=== PATIENT | male | born 1990 | race Caucasian/White ===

== ENCOUNTER 2017-08-24 14:31 | Inpatient (IN) | payer BC, MEDICAID ==
[~2017-08-24] VITALS: Ht 182.9 cm; Wt 102.1 kg
[2017-08-24] MEDS ORDERED: SODIUM CHLORIDE FLUSH 10ML SYR IVF ONE (15:00)
[2017-08-24 15:33] LABS: BASOPHILS # (AUTO) 0.06 x10^3/uL (0-0.1); BASOPHILS % (AUTO) 1 % (0-1); EOSINOPHILS # (AUTO) 0.17 x10^3/uL (0-0.4); EOSINOPHILS % (AUTO) 2 % (1-7); LYMPHOCYTES # (AUTO) 2.19 x10^3/uL (1-3.4); LYMPHOCYTES % (AUTO) 27 % (22-44); MD NO; MEAN CORPUSCULAR HEMOGLOBIN 30.4 pg (27.5-34.5); MEAN CORPUSCULAR HGB CONC 34.9 g/dL (33.2-36.2); MEAN CORPUSCULAR VOLUME 87.1 fL (81-97); MEAN PLATELET VOLUME 7.7 fL (7.4-10.4); MONOCYTES % (AUTO) 9 % (2-9); NEUTROPHILS # (AUTO) 4.96 x10^3/uL (1.8-6.8); NEUTROPHILS % (AUTO) 61 % (42-75); PLATELET COUNT 288 x10^3/uL (130-400); RED BLOOD COUNT 4.99 x10^6/uL (4.38-5.82); RED CELL DISTRIBUTION WIDTH 12.5 % (9.4-14.8)
[2017-08-24 15:46] LABS: ALANINE AMINOTRANSFERASE 115 U/L (12-78); ALBUMIN 4.2 g/dL (3.4-5.0); ANION GAP 8 mmol/L (5-15); CALCIUM 8.6 mg/dL (8.5-10.1); CHLORIDE 109 mmol/L (98-107)
[2017-08-24 15:48] LABS: ALKALINE PHOSPHATASE 122 U/L (45-117); BILIRUBIN,TOTAL 0.4 mg/dL (0.2-1.0)
[2017-08-24] MEDS ORDERED: ONDA4TAB13 SL (18:42)
[2017-08-24] MEDS ORDERED: SUMA100T4 PO (18:42)
[2017-08-24] MEDS ORDERED: PANT40TA5 PO (18:42)
[2017-08-24] MEDS ORDERED: KETO10TA PO (18:42)
[2017-08-24] MEDS ORDERED: DOXY100C15 PO (18:42)
[2017-08-24] MEDS ORDERED: AMOX1TAB64 PO (18:42)
[2017-08-24] MEDS ORDERED: ONDANSETRON 2MG/ML, 2ML IVPush ONE (19:00)
[2017-08-24] MEDS ORDERED: PIPERACILLIN/TAZO/PMX 3.375GM 50 ML IV ONE (19:00)
[2017-08-24] MEDS ORDERED: MORPHINE SULFATE 4 MG/ML, 1ML IVPush PRN (19:00)
[2017-08-24 19:11] LABS: HCT (SEDRATE) 43.5 % (39.2-51.8)
[2017-08-24] MEDS ORDERED: MORPHINE SULFATE 4 MG/ML, 1ML ONE (19:41)
[2017-08-24] MEDS ORDERED: PIPERACILLIN/TAZO/PMX 3.375GM 50 ML ONE (19:42)
[2017-08-24] MEDS ORDERED: ONDANSETRON 2MG/ML, 2ML ONE ×2 (19:42→21:43)
[2017-08-24] MEDS ORDERED: SODIUM CHLORIDE FLUSH 10ML SYR IVF PRN (20:30)
[2017-08-24] MEDS ORDERED: BACITRACIN 50,000 UNIT ONE (21:05)
[2017-08-24] MEDS ORDERED: FENTANYL PF 100 MCG/2ML ONE ×2 (21:07→22:16)
[2017-08-24] MEDS ORDERED: PROPOFOL 10 MG/ML, 20ML ONE (21:43)
[2017-08-24] MEDS ORDERED: DEXAMETHASONE 4 MG/ML, 1ML ONE (21:43)
[2017-08-24] MEDS ORDERED: VANCOMYCIN 1,000 MG ONE (21:53)
[2017-08-24] MEDS: D5%-0.45% NACL 1,000 ML IV SCH (22:27)
[2017-08-24] MEDS ORDERED: ONDANSETRON 2MG/ML, 2ML IV PRN (22:30)
[2017-08-24] MEDS ORDERED: MEPERIDINE/PF 50 MG/ML ONE (22:30)
[2017-08-24] MEDS ORDERED: HYDROcodone/APAP 5/325 TABLET PO PRN (22:30)
[2017-08-24] MEDS: MEPERIDINE/PF 25MG/0.5ML IVPush PRN ×2 (22:35→22:45)
[2017-08-24] MEDS ORDERED: PHARMACOKINETIC CONSULTATION MC ONE (23:00)
[2017-08-24] MEDS ORDERED: PHARMACOKINETIC MONITORING MC PRN (23:00)
[2017-08-24] MEDS ORDERED: VANCOMYCIN PMX 1GM/200ML 200 ML IVPB ONE (23:00)
[2017-08-24] MEDS ORDERED: VANCOMYCIN PER PHARMACY MC PRN (23:00)
[2017-08-24] MEDS ORDERED: HYDROmorphone 2 MG/ML, 1ML ONE (23:06)
[2017-08-24] MEDS ORDERED: OXYcodone 5 MG/5 ML ORAL.SOL UDC PO PRN (23:30)
[2017-08-24] MEDS ORDERED: PROMETHAZINE 25 MG/ML, 1ML IV PRN (23:30)
[2017-08-24] MEDS ORDERED: HYDROmorphone 1 MG/ML, 1ML IV PRN (23:30)
[2017-08-24] MEDS ORDERED: FENTANYL PF 100 MCG/2ML IV PRN (23:30)
[2017-08-24] MEDS ORDERED: ACETAMINOPHEN 325 MG TABLET PO PRN (23:30)
[2017-08-25 00:30] VITALS: BP 119/71
[2017-08-25] MEDS: POTASSIUM CHLORIDE 20 MEQ in D5%-0.45% NACL 1,000 ML IV SCH ×3 (00:55→21:06)
[2017-08-25] MEDS: DIPHENHYDRAMINE 25 MG CAPSULE PO PRN (00:58)
[2017-08-25 02:00] VITALS: BP 118/65
[2017-08-25 04:17] VITALS: BP 136/71
[2017-08-25] MEDS: VANCOMYCIN 1,900 MG in SODIUM CHLORIDE 0.9% 250 ML IV SCH ×2 (04:18→15:59)
[2017-08-25 06:51] VITALS: BP 109/66
[2017-08-25] MEDS: D5%-0.45% NACL 1,000 ML IV SCH ×2 (09:12→17:29)
[2017-08-25] MEDS: DOCUSATE 100 MG CAPSULE PO SCH ×2 (09:13→20:31)
[2017-08-25] MEDS: OXYcodone/APAP 5/325MG TABLET PO PRN ×3 (10:24→21:49)
[2017-08-25] MEDS: MICAFUNGIN 100 MG in SODIUM CHLORIDE 0.9% 100 ML IV SCH (11:56)
[2017-08-25 12:38] VITALS: BP 111/55
[2017-08-25 20:17] VITALS: BP 123/74
[2017-08-26 01:49] VITALS: BP 111/73
[2017-08-26] MEDS: OXYcodone/APAP 5/325MG TABLET PO PRN ×4 (01:57→20:15)
[2017-08-26] MEDS: VANCOMYCIN 1,900 MG in SODIUM CHLORIDE 0.9% 250 ML IV SCH (04:20)
[2017-08-26 07:34] VITALS: BP 115/62
[2017-08-26] MEDS: DOCUSATE 100 MG CAPSULE PO SCH ×2 (09:25→20:15)
[2017-08-26] MEDS: MICAFUNGIN 100 MG in SODIUM CHLORIDE 0.9% 100 ML IV SCH (11:31)
[2017-08-26] MEDS: morphine SULFATE 10 MG/ML, 1ML IV PRN ×3 (11:40→21:57)
[2017-08-26] MEDS ORDERED: GADOBUTROL 10 MMOL/10 ML PFS ONE (12:56)
[2017-08-26 14:05] VITALS: BP 125/66
[2017-08-26] MEDS: CEFTAROLINE 600 MG in SODIUM CHLORIDE 0.9% 100 ML IV SCH (17:02)
[2017-08-26 18:36] VITALS: BP 146/81
[2017-08-26] MEDS: DIPHENHYDRAMINE 25 MG CAPSULE PO PRN (21:57)
[2017-08-27 03:05] VITALS: BP 104/66
[2017-08-27] MEDS: CEFTAROLINE 600 MG in SODIUM CHLORIDE 0.9% 100 ML IV SCH ×2 (04:25→16:27)
[2017-08-27] MEDS: OXYcodone/APAP 5/325MG TABLET PO PRN ×4 (04:30→19:31)
[2017-08-27 07:52] VITALS: BP 113/79
[2017-08-27] MEDS: DOCUSATE 100 MG CAPSULE PO SCH ×2 (08:11→22:18)
[2017-08-27] MEDS: morphine SULFATE 10 MG/ML, 1ML IV PRN ×3 (10:00→22:18)
[2017-08-27] MEDS: MICAFUNGIN 100 MG in SODIUM CHLORIDE 0.9% 100 ML IV SCH (11:38)
[2017-08-27 15:29] VITALS: BP 119/80
[2017-08-27] MEDS: D5%-LACTATED RINGERS 1,000 ML IV SCH (16:27)
[2017-08-27 19:26] VITALS: BP 111/67
[2017-08-28] MEDS: OXYcodone/APAP 5/325MG TABLET PO PRN ×4 (00:49→23:15)
[2017-08-28] MEDS: D5%-LACTATED RINGERS 1,000 ML IV SCH ×3 (00:50→21:54)
[2017-08-28 01:20] VITALS: BP 120/76
[2017-08-28] MEDS: CEFTAROLINE 600 MG in SODIUM CHLORIDE 0.9% 100 ML IV SCH ×2 (04:41→17:00)
[2017-08-28 07:29] VITALS: BP 125/77
[2017-08-28] MEDS: DOCUSATE 100 MG CAPSULE PO SCH ×2 (07:39→21:54)
[2017-08-28] MEDS: morphine SULFATE 10 MG/ML, 1ML IV PRN ×5 (09:43→16:03)
[2017-08-28] MEDS: MICAFUNGIN 100 MG in SODIUM CHLORIDE 0.9% 100 ML IV SCH (11:36)
[2017-08-28] MEDS ORDERED: BUPIVACAINE/PF 0.25% ONE (13:32)
[2017-08-28] MEDS ORDERED: BACITRACIN OINT 500U/GM, 15 GM ONE (13:32)
[2017-08-28] MEDS ORDERED: FENTANYL PF 250 MCG/5ML ONE (13:59)
[2017-08-28] MEDS ORDERED: KETAMINE 10 MG/ML, 20ML ONE (14:00)
[2017-08-28] MEDS ORDERED: MIDAZOLAM 1 MG/ML, 2ML ONE (14:00)
[2017-08-28] MEDS ORDERED: DEXAMETHASONE 4 MG/ML, 1ML ONE (14:15)
[2017-08-28] MEDS ORDERED: PROPOFOL 10 MG/ML, 20ML ONE (14:15)
[2017-08-28] MEDS ORDERED: ONDANSETRON 2MG/ML, 2ML ONE (14:15)
[2017-08-28] MEDS ORDERED: ONDANSETRON 2MG/ML, 2ML IVPush PRN (14:30)
[2017-08-28] MEDS ORDERED: MEPERIDINE/PF 25MG/0.5ML IVPush PRN (14:30)
[2017-08-28] MEDS ORDERED: PROMETHAZINE 25 MG/ML, 1ML IV PRN (14:30)
[2017-08-28] MEDS ORDERED: OXYcodone 5 MG/5 ML ORAL.SOL UDC PO PRN (14:30)
[2017-08-28] MEDS ORDERED: LORazepam 2 MG/ML, 1ML IVPush PRN (14:30)
[2017-08-28] MEDS ORDERED: PROMETHAZINE 12.5 MG SUPP PR PRN (14:30)
[2017-08-28] MEDS ORDERED: MIDAZOLAM 1 MG/ML, 2ML IV PRN (14:30)
[2017-08-28] MEDS ORDERED: ACETAMINOPHEN 325 MG TABLET PO PRN (14:30)
[2017-08-28] MEDS ORDERED: FENTANYL PF 100 MCG/2ML ONE ×2 (15:13→15:39)
[2017-08-28] MEDS ORDERED: OXYcodone 5 MG/5 ML ORAL.SOL UDC ONE (15:13)
[2017-08-28] MEDS ORDERED: ACETAMINOPHEN 650 MG/20.3 ML UDC ONE (15:13)
[2017-08-28] MEDS ORDERED: morphine SULFATE 10 MG/ML, 1ML ONE ×2 (15:13→15:39)
[2017-08-28] MEDS: FENTANYL PF 100 MCG/2ML IV PRN ×4 (15:15→16:02)
[2017-08-28 16:35] VITALS: BP 126/80
[2017-08-28] MEDS ORDERED: HYDROmorphone 1 MG/ML, 1ML ONE ×2 (16:52→17:34)
[2017-08-28] MEDS: HYDROmorphone 2 MG/ML, 1ML IV PRN ×2 (16:57→17:30)
[2017-08-28 19:42] VITALS: BP 131/75
[2017-08-29] MEDS ORDERED: HYDROmorphone 1 MG/ML, 1ML ONE ×4 (00:57→22:07)
[2017-08-29] MEDS: HYDROmorphone 2 MG/ML, 1ML IV PRN ×4 (01:00→22:15)
[2017-08-29 01:18] VITALS: BP 122/89
[2017-08-29] MEDS: OXYcodone/APAP 5/325MG TABLET PO PRN ×4 (04:30→20:05)
[2017-08-29] MEDS: CEFTAROLINE 600 MG in SODIUM CHLORIDE 0.9% 100 ML IV SCH (04:31)
[2017-08-29] MEDS: D5%-LACTATED RINGERS 1,000 ML IV SCH ×2 (04:33→13:37)
[2017-08-29 07:10] VITALS: BP 127/85
[2017-08-29] MEDS: DOCUSATE 100 MG CAPSULE PO SCH ×2 (07:31→20:06)
[2017-08-29] MEDS: SULFAMETH./TRIMETHOPRIM DS 800MG/160MG TABLET PO SCH ×2 (09:20→20:06)
[2017-08-29] MEDS: FLUCONAZOLE 200 MG TABLET PO SCH (09:21)
[2017-08-29 20:06] VITALS: BP 123/81
[2017-08-30] MEDS: D5%-LACTATED RINGERS 1,000 ML IV SCH ×3 (00:19→15:55)
[2017-08-30] MEDS: OXYcodone/APAP 5/325MG TABLET PO PRN ×6 (00:20→23:52)
[2017-08-30 02:14] VITALS: BP 130/88
[2017-08-30] MEDS ORDERED: HYDROmorphone 1 MG/ML, 1ML ONE (04:27)
[2017-08-30] MEDS: HYDROmorphone 2 MG/ML, 1ML IV PRN (04:42)
[2017-08-30 07:20] VITALS: BP 120/84
[2017-08-30] MEDS: FLUCONAZOLE 200 MG TABLET PO SCH (08:38)
[2017-08-30] MEDS: SULFAMETH./TRIMETHOPRIM DS 800MG/160MG TABLET PO SCH ×2 (08:38→21:20)
[2017-08-30] MEDS: DOCUSATE 100 MG CAPSULE PO SCH ×2 (08:38→21:20)
[2017-08-30 12:50] VITALS: BP 131/94
[2017-08-30] MEDS: morphine SULFATE 10 MG/ML, 1ML IV PRN ×2 (14:15→21:42)
[2017-08-30 19:40] VITALS: BP 117/76
[2017-08-31 00:50] VITALS: BP 129/83
[2017-08-31] MEDS: morphine SULFATE 10 MG/ML, 1ML IV PRN ×3 (03:00→14:09)
[2017-08-31] MEDS: OXYcodone/APAP 5/325MG TABLET PO PRN ×4 (06:09→20:54)
[2017-08-31] MEDS: D5%-LACTATED RINGERS 1,000 ML IV SCH ×2 (06:12→14:09)
[2017-08-31 07:30] VITALS: BP 118/78
[2017-08-31] MEDS: SULFAMETH./TRIMETHOPRIM DS 800MG/160MG TABLET PO SCH ×2 (09:02→20:54)
[2017-08-31] MEDS: DOCUSATE 100 MG CAPSULE PO SCH ×2 (09:02→20:54)
[2017-08-31 19:36] VITALS: BP 119/82
[2017-09-01] MEDS: OXYcodone/APAP 5/325MG TABLET PO PRN ×4 (00:11→15:07)
[2017-09-01] MEDS: morphine SULFATE 10 MG/ML, 1ML IV PRN ×3 (00:20→13:31)
[2017-09-01 01:08] VITALS: BP 123/83
[2017-09-01 08:58] VITALS: BP 100/63
[2017-09-01] MEDS ORDERED: FLUCONAZOLE 200 MG TABLET PO SCH (09:00)
[2017-09-01] MEDS: SULFAMETH./TRIMETHOPRIM DS 800MG/160MG TABLET PO SCH (09:16)
[2017-09-01] MEDS: DOCUSATE 100 MG CAPSULE PO SCH (09:16)
[2017-09-01] MEDS: D5%-LACTATED RINGERS 1,000 ML IV SCH (09:59)
[2017-09-01] MEDS ORDERED: Septra DS (11:02)
[2017-09-01] MEDS ORDERED: septra (11:02)
[2017-09-01] MEDS ORDERED: SULFAMETHOXAZOLE PO (11:05)
[2017-09-01] MEDS ORDERED: FLUC200T4 PO (11:05)
[2017-09-01] MEDS ORDERED: TRIMETHOPRIM PO (11:05)
[2017-09-01 13:55] VITALS: BP 119/81
== END 2017-09-01 15:25 | disposition home or self-care (01) | DRG 574 ==
LOC: ED 16:00 → EDIP 20:43 → 4NOR 20:54
PROVIDERS: ADMIT Orthopaedic Surgery; ATTEND Orthopaedic Surgery
PROC: 0JBQ0ZZ Excision of Right Foot Subcutaneous Tissue and Fascia, Open Approach (ICD-10-PCS; principal; 2017-08-24 21:30)
PROC: 0HRMX73 Replacement of Right Foot Skin with Autologous Tissue Substitute, Full Thickness, External Approach (ICD-10-PCS; 2017-08-28)
DX: L03.115 Cellulitis of right lower limb (principal); K50.90 Crohn's disease, unspecified, without complications; E11.621 Type 2 diabetes mellitus with foot ulcer; F10.20 Alcohol dependence, uncomplicated; G89.29 Other chronic pain
CPT/HCPCS: 36415; 80053; 83605; 84145; 85025; 85651; 86141; 87040; 87070; 87075; 87077; 87106; 87186; 87205; 93922; 96365; 96375; A9585; J0712; J1100; J1170; J2175; J2248; J2250; J2405; J2543; J2704; J3010; J3370; J3480; J3490; J2270; J7050; J7121; Q0163

== ENCOUNTER 2017-09-03 19:40 | Inpatient (IN) | payer MEDICAID ==
[~2017-09-03] VITALS: Ht 182.9 cm; Wt 99.1 kg
[~2017-09-03 19:40] MED LIST: AMOX1TAB64 PO; DOXY100C15 PO; FLUC200T4 PO; KETO10TA PO; ONDA4TAB13 SL; PANT40TA5 PO; SULFAMETHOXAZOLE PO; SUMA100T4 PO; Septra DS; TRIMETHOPRIM PO; septra
[2017-09-03 20:24] LABS: BASOPHILS # (AUTO) 0.05 x10^3/uL (0-0.1); BASOPHILS % (AUTO) 1 % (0-1); EOSINOPHILS # (AUTO) 0.55 x10^3/uL (0-0.4); EOSINOPHILS % (AUTO) 6 % (1-7); LYMPHOCYTES # (AUTO) 3.13 x10^3/uL (1-3.4); LYMPHOCYTES % (AUTO) 37 % (22-44); MD NO; MEAN CORPUSCULAR HEMOGLOBIN 29.8 pg (27.5-34.5); MEAN CORPUSCULAR HGB CONC 34.5 g/dL (33.2-36.2); MEAN CORPUSCULAR VOLUME 86.3 fL (81-97); MEAN PLATELET VOLUME 7.5 fL (7.4-10.4); MONOCYTES # (AUTO) 0.84 x10^3/uL (0.2-0.8); MONOCYTES % (AUTO) 10 % (2-9); NEUTROPHILS # (AUTO) 3.92 x10^3/uL (1.8-6.8); NEUTROPHILS % (AUTO) 46 % (42-75); PLATELET COUNT 331 x10^3/uL (130-400); RED BLOOD COUNT 5.51 x10^6/uL (4.38-5.82); RED CELL DISTRIBUTION WIDTH 12.3 % (9.4-14.8)
[2017-09-03 20:32] LABS: ALANINE AMINOTRANSFERASE 150 U/L (12-78); ALBUMIN 4.2 g/dL (3.4-5.0); ANION GAP 9 mmol/L (5-15); CALCIUM 8.7 mg/dL (8.5-10.1); CHLORIDE 104 mmol/L (98-107); CREATININE 1.23 mg/dL (0.7-1.3)
[2017-09-03 20:35] LABS: ALKALINE PHOSPHATASE 150 U/L (45-117); BILIRUBIN,TOTAL 0.3 mg/dL (0.2-1.0); TOTAL PROTEIN 8.2 g/dL (6.4-8.2)
[2017-09-03] MEDS ORDERED: HYDROmorphone 1 MG/ML, 1ML ONE (21:19)
[2017-09-03] MEDS ORDERED: ONDANSETRON 2MG/ML, 2ML ONE (21:20)
[2017-09-03] MEDS ORDERED: SODIUM CHLORIDE FLUSH 10ML SYR IVF ONE (21:30)
[2017-09-03] MEDS ORDERED: CEFTAROLINE 600 MG in SODIUM CHLORIDE 0.9% 100 ML IV SCH (21:30)
[2017-09-03] MEDS ORDERED: ONDANSETRON 2MG/ML, 2ML IVPush ONE (21:30)
[2017-09-03] MEDS ORDERED: HYDROmorphone 1 MG/ML, 1ML IVPush PRN (21:30)
[2017-09-03] MEDS ORDERED: SODIUM CHLORIDE FLUSH 10ML SYR IVF PRN (22:00)
[2017-09-04] MEDS ORDERED: LORazepam 1MG TABLET PO ONE
[2017-09-04] MEDS ORDERED: ACETAMINOPHEN 325 MG TABLET PO PRN
[2017-09-04] MEDS: MICAFUNGIN 100 MG in SODIUM CHLORIDE 0.9% 100 ML IV SCH ×2 (00:10→21:30)
[2017-09-04] MEDS: MORPHINE SULFATE 4 MG/ML, 1ML IVPush PRN ×3 (00:31→09:53)
[2017-09-04] MEDS ORDERED: PANTOPROZOLE 40MG TABLET PO SCH (07:30)
[2017-09-04 07:31] VITALS: BP 121/76
[2017-09-04] MEDS: KETOROLAC 30 MG/1 ML IVPush SCH ×2 (11:30→18:02)
[2017-09-04] MEDS ORDERED: methylPREDNISolone SOD SUCC 125 MG/2 ML IVPush ONE (11:30)
[2017-09-04] MEDS: HYDROmorphone 1 MG/ML, 1ML IV PRN ×2 (11:31→14:11)
[2017-09-04 12:16] VITALS: BP 123/84
[2017-09-04] MEDS: CEFTAROLINE 600 MG in SODIUM CHLORIDE 0.9% 100 ML IV SCH ×2 (15:03→23:42)
[2017-09-04] MEDS: morphine SULFATE 10 MG/ML, 1ML IVPush PRN ×2 (18:15→21:31)
[2017-09-04 19:52] VITALS: BP 113/73
[2017-09-05] MEDS: KETOROLAC 30 MG/1 ML IVPush SCH ×4 (00:27→17:30)
[2017-09-05] MEDS: morphine SULFATE 10 MG/ML, 1ML IVPush PRN ×5 (01:22→21:17)
[2017-09-05 01:30] VITALS: BP 116/72
[2017-09-05 06:30] VITALS: BP 127/84
[2017-09-05] MEDS: CEFTAROLINE 600 MG in SODIUM CHLORIDE 0.9% 100 ML IV SCH ×2 (06:38→14:35)
[2017-09-05] MEDS: D5%-LACTATED RINGERS 1,000 ML IV SCH ×2 (14:36→22:00)
[2017-09-05 15:25] VITALS: BP 136/90
[2017-09-05] MEDS ORDERED: FENTANYL PF 250 MCG/5ML ONE (16:49)
[2017-09-05] MEDS ORDERED: METOPROLOL 1 MG/ML, 5ML ONE (16:50)
[2017-09-05] MEDS ORDERED: MIDAZOLAM 1 MG/ML, 2ML ONE (16:50)
[2017-09-05] MEDS ORDERED: KETAMINE 10 MG/ML, 20ML ONE (17:14)
[2017-09-05] MEDS ORDERED: SUCCINYLCHOLINE 20 MG/ML, 10ML ONE (17:15)
[2017-09-05] MEDS ORDERED: ROCURONIUM 10 MG/ML,10ML ONE (17:15)
[2017-09-05] MEDS ORDERED: PROPOFOL 10 MG/ML, 20ML ONE (17:15)
[2017-09-05] MEDS ORDERED: ONDANSETRON 2MG/ML, 2ML IVPush PRN (18:00)
[2017-09-05] MEDS ORDERED: ACETAMINOPHEN 325 MG TABLET PO PRN (18:00)
[2017-09-05] MEDS ORDERED: morphine SULFATE 10 MG/ML, 1ML IV PRN (18:00)
[2017-09-05] MEDS ORDERED: PROMETHAZINE 25 MG/ML, 1ML IV PRN (18:00)
[2017-09-05] MEDS ORDERED: HYDROcodone/APAP 7.5-325MG/15ML UDC PO PRN (18:00)
[2017-09-05] MEDS ORDERED: OXYcodone 5 MG/5 ML ORAL.SOL UDC PO PRN (18:00)
[2017-09-05] MEDS ORDERED: MEPERIDINE/PF 25MG/0.5ML IVPush PRN (18:00)
[2017-09-05] MEDS ORDERED: MEPERIDINE/PF 50 MG/ML ONE (18:51)
[2017-09-05] MEDS ORDERED: LORazepam 2 MG/ML, 1ML ONE (19:05)
[2017-09-05] MEDS ORDERED: ACETAMINOPHEN 650 MG/20.3 ML UDC ONE (19:33)
[2017-09-05] MEDS ORDERED: OXYcodone 5 MG/5 ML ORAL.SOL UDC ONE (19:33)
[2017-09-05] MEDS: LORazepam 2 MG/ML, 1ML IVPush PRN ×2 (19:45→19:50)
[2017-09-05] MEDS: FENTANYL PF 100 MCG/2ML IV PRN ×2 (19:45→19:50)
[2017-09-05] MEDS ORDERED: FENTANYL PF 100 MCG/2ML ONE (20:01)
[2017-09-05 20:30] VITALS: BP 119/82
[2017-09-05] MEDS: MICAFUNGIN 100 MG in SODIUM CHLORIDE 0.9% 100 ML IV SCH (23:27)
[2017-09-05 23:34] VITALS: BP 136/77
[2017-09-06] MEDS: CEFTAROLINE 600 MG in SODIUM CHLORIDE 0.9% 100 ML IV SCH ×4 (00:23→23:21)
[2017-09-06] MEDS: morphine SULFATE 10 MG/ML, 1ML IVPush PRN ×7 (00:24→23:21)
[2017-09-06 02:00] VITALS: BP 126/71
[2017-09-06] MEDS: D5%-LACTATED RINGERS 1,000 ML IV SCH (06:00)
[2017-09-06 06:25] LABS: MEAN CORPUSCULAR HEMOGLOBIN 30.2 pg (27.5-34.5); MEAN CORPUSCULAR HGB CONC 34.4 g/dL (33.2-36.2); MEAN CORPUSCULAR VOLUME 87.7 fL (81-97); MEAN PLATELET VOLUME 8.1 fL (7.4-10.4); PLATELET COUNT 292 x10^3/uL (130-400); RED BLOOD COUNT 4.37 x10^6/uL (4.38-5.82)
[2017-09-06 06:28] LABS: ALBUMIN 3.6 g/dL (3.4-5.0); ANION GAP 8 mmol/L (5-15); CALCIUM 8.6 mg/dL (8.5-10.1); CHLORIDE 106 mmol/L (98-107)
[2017-09-06 06:31] LABS: ALANINE AMINOTRANSFERASE 93 U/L (12-78); ALKALINE PHOSPHATASE 102 U/L (45-117); BILIRUBIN,TOTAL 0.4 mg/dL (0.2-1.0); CREATININE 1.04 mg/dL (0.7-1.3); TOTAL PROTEIN 6.8 g/dL (6.4-8.2)
[2017-09-06 07:05] LABS: MD SCAN
[2017-09-06 07:06] LABS: BASOPHILS # (AUTO) 0.03 x10^3/uL (0-0.1); BASOPHILS % (AUTO) 0 % (0-1); EOSINOPHILS % (AUTO) 0 % (1-7); LYMPHOCYTES # (AUTO) 1.16 x10^3/uL (1-3.4); LYMPHOCYTES % (AUTO) 8 % (22-44); MONOCYTES # (AUTO) 0.59 x10^3/uL (0.2-0.8); MONOCYTES % (AUTO) 4 % (2-9); NEUTROPHILS % (AUTO) 87 % (42-75)
[2017-09-06 08:00] VITALS: BP 151/80
[2017-09-06] MEDS: GABAPENTIN 300 MG CAPSULE PO SCH ×3 (08:46→20:33)
[2017-09-06] MEDS: ACETAMINOPHEN 500 MG TABLET PO SCH ×3 (08:46→20:34)
[2017-09-06] MEDS ORDERED: OXYcodone IR 5MG TABLET PO PRN (11:00)
[2017-09-06 13:23] VITALS: BP 143/82
[2017-09-06] MEDS: OXYcodone IR 5MG TABLET PO PRN ×2 (17:59→21:47)
[2017-09-06 19:12] VITALS: BP 147/87
[2017-09-06] MEDS ORDERED: HYDROXYZINE PAMOATE 25MG CAP ONE (20:27)
[2017-09-06] MEDS: HYDROXYZINE PAMOATE 50MG CAP PO PRN (20:34)
[2017-09-06] MEDS: MICAFUNGIN 100 MG in SODIUM CHLORIDE 0.9% 100 ML IV SCH (21:47)
[2017-09-07 01:22] VITALS: BP 133/87
[2017-09-07] MEDS: OXYcodone IR 5MG TABLET PO PRN ×6 (01:35→22:08)
[2017-09-07] MEDS: morphine SULFATE 10 MG/ML, 1ML IVPush PRN ×7 (02:34→23:19)
[2017-09-07] MEDS: CEFTAROLINE 600 MG in SODIUM CHLORIDE 0.9% 100 ML IV SCH ×3 (06:37→23:20)
[2017-09-07 08:15] VITALS: BP 169/109
[2017-09-07] MEDS: ACETAMINOPHEN 500 MG TABLET PO SCH ×3 (08:48→21:12)
[2017-09-07] MEDS: GABAPENTIN 300 MG CAPSULE PO SCH ×3 (08:48→21:13)
[2017-09-07] MEDS ORDERED: METHOCARBAMOL 500 MG TABLET PO ONE ×2 (12:30→19:00)
[2017-09-07 15:06] VITALS: BP 149/92
[2017-09-07] MEDS: MELOXICAM 15 MG TABLET PO SCH (15:23)
[2017-09-07 19:11] VITALS: BP 121/75
[2017-09-07] MEDS ORDERED: MELATONIN 5 MG TABLET PO SCH (21:00)
[2017-09-07] MEDS: FAMOTIDINE 20 MG/2 ML IVPush SCH (21:12)
[2017-09-07] MEDS: MICAFUNGIN 100 MG in SODIUM CHLORIDE 0.9% 100 ML IV SCH (22:08)
[2017-09-07] MEDS ORDERED: HYDROXYZINE PAMOATE 25MG CAP ONE (22:58)
[2017-09-07] MEDS: HYDROXYZINE PAMOATE 50MG CAP PO PRN (23:20)
[2017-09-08] MEDS: morphine SULFATE 10 MG/ML, 1ML IVPush PRN ×7 (02:22→21:37)
[2017-09-08] MEDS: OXYcodone IR 5MG TABLET PO PRN ×2 (02:22→06:21)
[2017-09-08 03:41] VITALS: BP 126/83
[2017-09-08] MEDS: METHOCARBAMOL 500 MG TABLET PO SCH ×4 (05:29→21:00)
[2017-09-08 07:54] VITALS: BP 165/97
[2017-09-08] MEDS: CEFTAROLINE 600 MG in SODIUM CHLORIDE 0.9% 100 ML IV SCH ×2 (08:37→16:04)
[2017-09-08] MEDS: FAMOTIDINE 20 MG/2 ML IVPush SCH ×2 (08:59→21:00)
[2017-09-08] MEDS: GABAPENTIN 300 MG CAPSULE PO SCH (08:59)
[2017-09-08] MEDS: ACETAMINOPHEN 500 MG TABLET PO SCH ×3 (08:59→20:55)
[2017-09-08] MEDS: MELOXICAM 15 MG TABLET PO SCH (08:59)
[2017-09-08] MEDS ORDERED: MAGNESIUM CITRATE 300ML ORAL SOL PO ONE (10:00)
[2017-09-08] MEDS: FAMOTIDINE 20 MG TABLET PO SCH ×2 (10:00→20:56)
[2017-09-08] MEDS: KETOROLAC 30 MG/1 ML IVPush SCH ×3 (10:29→22:42)
[2017-09-08] MEDS: HYDROmorphone 2MG TABLET PO PRN ×4 (10:29→22:42)
[2017-09-08] MEDS: SENNA/DOCUSATE TABLET PO SCH ×2 (10:29→20:56)
[2017-09-08 14:04] VITALS: BP 144/94
[2017-09-08] MEDS: GABAPENTIN 400 MG CAPSULE PO SCH ×2 (16:05→20:56)
[2017-09-08] MEDS: TRAZODONE 100MG TABLET PO SCH (20:56)
[2017-09-08] MEDS: MICAFUNGIN 100 MG in SODIUM CHLORIDE 0.9% 100 ML IV SCH (21:40)
[2017-09-08 21:57] VITALS: BP 132/85
[2017-09-09] MEDS: morphine SULFATE 10 MG/ML, 1ML IVPush PRN ×4 (00:25→13:25)
[2017-09-09] MEDS: CEFTAROLINE 600 MG in SODIUM CHLORIDE 0.9% 100 ML IV SCH ×4 (00:25→23:42)
[2017-09-09] MEDS ORDERED: HYDROXYZINE PAMOATE 25MG CAP ONE (02:14)
[2017-09-09] MEDS: HYDROmorphone 2MG TABLET PO PRN ×6 (02:19→23:42)
[2017-09-09] MEDS: HYDROXYZINE PAMOATE 50MG CAP PO PRN (02:19)
[2017-09-09 03:34] VITALS: BP 122/77
[2017-09-09] MEDS: KETOROLAC 30 MG/1 ML IVPush SCH (03:38)
[2017-09-09] MEDS: METHOCARBAMOL 500 MG TABLET PO SCH ×4 (06:00→20:46)
[2017-09-09] MEDS: FAMOTIDINE 20 MG/2 ML IVPush SCH ×2 (07:53→20:47)
[2017-09-09 08:03] VITALS: BP 134/81
[2017-09-09] MEDS: FAMOTIDINE 20 MG TABLET PO SCH ×2 (08:04→20:47)
[2017-09-09] MEDS: SENNA/DOCUSATE TABLET PO SCH ×2 (08:04→20:43)
[2017-09-09] MEDS: GABAPENTIN 400 MG CAPSULE PO SCH ×3 (08:05→20:44)
[2017-09-09] MEDS: ACETAMINOPHEN 500 MG TABLET PO SCH ×3 (08:05→20:43)
[2017-09-09] MEDS ORDERED: MAGNESIUM CITRATE 300ML ORAL SOL PO PRN (10:00)
[2017-09-09 13:33] VITALS: BP 153/93
[2017-09-09] MEDS ORDERED: DULOXETINE 30 MG CAPSULE.DR PO ONE (18:30)
[2017-09-09] MEDS: GABAPENTIN 100 MG CAPSULE PO SCH (20:44)
[2017-09-09] MEDS: TRAZODONE 100MG TABLET PO SCH (20:44)
[2017-09-09 21:22] VITALS: BP 136/85
[2017-09-09] MEDS: MICAFUNGIN 100 MG in SODIUM CHLORIDE 0.9% 100 ML IV SCH (21:38)
[2017-09-10 02:04] VITALS: BP 146/97
[2017-09-10] MEDS: morphine SULFATE 10 MG/ML, 1ML IVPush PRN (02:20)
[2017-09-10] MEDS: HYDROmorphone 2MG TABLET PO PRN ×5 (04:41→21:44)
[2017-09-10 05:02] LABS: MD NO; RED BLOOD COUNT 4.08 x10^6/uL (4.38-5.82)
[2017-09-10 05:11] LABS: ANION GAP 6 mmol/L (5-15); CALCIUM 8.8 mg/dL (8.5-10.1); CHLORIDE 106 mmol/L (98-107)
[2017-09-10 05:20] LABS: ALANINE AMINOTRANSFERASE 216 U/L (12-78); ALKALINE PHOSPHATASE 133 U/L (45-117); BILIRUBIN,TOTAL 0.6 mg/dL (0.2-1.0); CREATININE 0.97 mg/dL (0.7-1.3); TOTAL PROTEIN 6.5 g/dL (6.4-8.2)
[2017-09-10 05:30] LABS: BASOPHILS # (AUTO) 0.03 x10^3/uL (0-0.1); BASOPHILS % (AUTO) 0 % (0-1); EOSINOPHILS # (AUTO) 0.43 x10^3/uL (0-0.4); EOSINOPHILS % (AUTO) 5 % (1-7); LYMPHOCYTES # (AUTO) 2.36 x10^3/uL (1-3.4); LYMPHOCYTES % (AUTO) 27 % (22-44); MEAN CORPUSCULAR HEMOGLOBIN 29.7 pg (27.5-34.5); MEAN CORPUSCULAR HGB CONC 34.2 g/dL (33.2-36.2); MEAN CORPUSCULAR VOLUME 86.6 fL (81-97); MEAN PLATELET VOLUME 7.5 fL (7.4-10.4); MONOCYTES # (AUTO) 0.78 x10^3/uL (0.2-0.8); MONOCYTES % (AUTO) 9 % (2-9); NEUTROPHILS # (AUTO) 5.33 x10^3/uL (1.8-6.8); NEUTROPHILS % (AUTO) 60 % (42-75); PLATELET COUNT 299 x10^3/uL (130-400); RED CELL DISTRIBUTION WIDTH 12.4 % (9.4-14.8)
[2017-09-10] MEDS: METHOCARBAMOL 500 MG TABLET PO SCH ×4 (06:07→20:03)
[2017-09-10 06:26] LABS: HCT (SEDRATE) 38.3 % (39.2-51.8)
[2017-09-10 07:18] VITALS: BP 149/96
[2017-09-10] MEDS: FAMOTIDINE 20 MG/2 ML IVPush SCH ×2 (08:35→20:03)
[2017-09-10] MEDS: GABAPENTIN 100 MG CAPSULE PO SCH ×3 (08:39→20:02)
[2017-09-10] MEDS: GABAPENTIN 400 MG CAPSULE PO SCH ×3 (08:39→20:02)
[2017-09-10] MEDS: ACETAMINOPHEN 500 MG TABLET PO SCH ×3 (08:39→20:02)
[2017-09-10] MEDS: SENNA/DOCUSATE TABLET PO SCH ×2 (08:39→20:02)
[2017-09-10] MEDS: CEFTAROLINE 600 MG in SODIUM CHLORIDE 0.9% 100 ML IV SCH ×2 (08:39→16:21)
[2017-09-10] MEDS: FAMOTIDINE 20 MG TABLET PO SCH ×2 (08:40→20:02)
[2017-09-10] MEDS: DULOXETINE 30 MG CAPSULE.DR PO SCH (08:40)
[2017-09-10 14:24] VITALS: BP 134/90
[2017-09-10] MEDS: TRAZODONE 100MG TABLET PO SCH (20:02)
[2017-09-10 20:10] VITALS: BP 139/89
[2017-09-10] MEDS: MICAFUNGIN 100 MG in SODIUM CHLORIDE 0.9% 100 ML IV SCH (21:43)
[2017-09-11] MEDS: CEFTAROLINE 600 MG in SODIUM CHLORIDE 0.9% 100 ML IV SCH ×3 (00:21→17:07)
[2017-09-11 02:03] VITALS: BP 131/86
[2017-09-11] MEDS: HYDROmorphone 2MG TABLET PO PRN ×6 (02:07→21:43)
[2017-09-11] MEDS: morphine SULFATE 10 MG/ML, 1ML IVPush PRN ×2 (04:08→08:45)
[2017-09-11] MEDS: METHOCARBAMOL 500 MG TABLET PO SCH ×4 (05:38→20:51)
[2017-09-11 07:36] VITALS: BP 125/85
[2017-09-11] MEDS: GABAPENTIN 400 MG CAPSULE PO SCH ×3 (08:37→20:50)
[2017-09-11] MEDS: SENNA/DOCUSATE TABLET PO SCH ×2 (08:38→20:51)
[2017-09-11] MEDS: ACETAMINOPHEN 500 MG TABLET PO SCH ×3 (08:38→20:51)
[2017-09-11] MEDS: DULOXETINE 30 MG CAPSULE.DR PO SCH (08:38)
[2017-09-11] MEDS: FAMOTIDINE 20 MG/2 ML IVPush SCH (08:38)
[2017-09-11] MEDS: FAMOTIDINE 20 MG TABLET PO SCH ×3 (08:38→20:51)
[2017-09-11] MEDS: GABAPENTIN 100 MG CAPSULE PO SCH ×3 (08:38→20:50)
[2017-09-11 12:59] VITALS: BP 117/81
[2017-09-11] MEDS ORDERED: ACET500T71 PO (18:44)
[2017-09-11] MEDS ORDERED: METH500T7 PO (18:44)
[2017-09-11] MEDS ORDERED: HYDR2TAB40 PO (18:44)
[2017-09-11] MEDS ORDERED: MORP30TA3 PO (18:44)
[2017-09-11] MEDS ORDERED: DULO30CA2 PO (18:44)
[2017-09-11] MEDS ORDERED: GABA800T2 PO (18:44)
[2017-09-11 19:48] VITALS: BP 139/91
[2017-09-11] MEDS: TRAZODONE 100MG TABLET PO SCH (20:51)
[2017-09-11] MEDS: MICAFUNGIN 100 MG in SODIUM CHLORIDE 0.9% 100 ML IV SCH (21:42)
[2017-09-12] MEDS: CEFTAROLINE 600 MG in SODIUM CHLORIDE 0.9% 100 ML IV SCH ×2 (00:04→08:08)
[2017-09-12 03:15] VITALS: BP 114/75
[2017-09-12] MEDS: HYDROmorphone 2MG TABLET PO PRN ×2 (03:18→08:09)
[2017-09-12] MEDS: METHOCARBAMOL 500 MG TABLET PO SCH ×2 (05:23→11:13)
[2017-09-12] MEDS: FAMOTIDINE 20 MG TABLET PO SCH ×2 (07:51→08:09)
[2017-09-12 08:07] VITALS: BP 125/82
[2017-09-12] MEDS: GABAPENTIN 400 MG CAPSULE PO SCH (08:08)
[2017-09-12] MEDS: ACETAMINOPHEN 500 MG TABLET PO SCH (08:08)
[2017-09-12] MEDS: SENNA/DOCUSATE TABLET PO SCH (08:09)
[2017-09-12] MEDS: GABAPENTIN 100 MG CAPSULE PO SCH (08:09)
[2017-09-12] MEDS: DULOXETINE 30 MG CAPSULE.DR PO SCH (08:09)
[2017-09-12] MEDS: morphine SULFATE 10 MG/ML, 1ML IVPush PRN (09:26)
== END 2017-09-12 13:39 | disposition home or self-care (01) | DRG 475 ==
LOC: ED 22:01 → EDIP 22:10 → 4NOR 22:45
PROVIDERS: ADMIT Hospitalist; ATTEND Hospitalist
PROC: 0Y6H0Z1 Detachment at Right Lower Leg, High, Open Approach (ICD-10-PCS; principal; 2017-09-05 16:45)
DX: M86.171 Other acute osteomyelitis, right ankle and foot (principal); K50.90 Crohn's disease, unspecified, without complications; L03.115 Cellulitis of right lower limb; G89.29 Other chronic pain; M86.671 Other chronic osteomyelitis, right ankle and foot; K59.00 Constipation, unspecified; M19.90 Unspecified osteoarthritis, unspecified site; Z79.2 Long term (current) use of antibiotics
CPT/HCPCS: 36415; 80053; 85025; 85651; 86140; 88307; 88311; 96365; 96375; J0712; J1170; J1885; J2175; J2248; J2250; J2405; J2704; J3010; J0330; J2060; J2270; J2930; J7121; S0028

== ENCOUNTER 2017-10-31 14:39 | Inpatient (IN) | payer MEDICAID ==
[~2017-10-31] VITALS: Ht 182.9 cm; Wt 97.2 kg
[~2017-10-31 14:39] MED LIST changes: +ACET500T71 PO; +DULO30CA2 PO; +GABA800T2 PO; +HYDR2TAB40 PO; +METH500T7 PO; +MORP30TA3 PO
[2017-10-31 15:29] LABS: BASOPHILS # (AUTO) 0.03 x10^3/uL (0-0.1); BASOPHILS % (AUTO) 0 % (0-1); EOSINOPHILS # (AUTO) 0.26 x10^3/uL (0-0.4); EOSINOPHILS % (AUTO) 3 % (1-7); LYMPHOCYTES # (AUTO) 3.39 x10^3/uL (1-3.4); LYMPHOCYTES % (AUTO) 35 % (22-44); MD NO; MEAN CORPUSCULAR HEMOGLOBIN 28.9 pg (27.5-34.5); MEAN CORPUSCULAR HGB CONC 33.3 g/dL (33.2-36.2); MEAN CORPUSCULAR VOLUME 86.8 fL (81-97); MONOCYTES # (AUTO) 0.63 x10^3/uL (0.2-0.8); MONOCYTES % (AUTO) 7 % (2-9); NEUTROPHILS % (AUTO) 56 % (42-75); PLATELET COUNT 324 x10^3/uL (130-400); RED BLOOD COUNT 5.76 x10^6/uL (4.38-5.82); RED CELL DISTRIBUTION WIDTH 12.6 % (9.4-14.8)
[2017-10-31 15:37] LABS: ALANINE AMINOTRANSFERASE 57 U/L (12-78); ALBUMIN 4.5 g/dL (3.4-5.0); ANION GAP 9 mmol/L (5-15); CALCIUM 8.9 mg/dL (8.5-10.1); CHLORIDE 108 mmol/L (98-107); CREATININE 1.19 mg/dL (0.7-1.3)
[2017-10-31 15:39] LABS: ALKALINE PHOSPHATASE 129 U/L (45-117); BILIRUBIN,TOTAL 0.3 mg/dL (0.2-1.0); TOTAL PROTEIN 8.2 g/dL (6.4-8.2)
[2017-10-31] MEDS ORDERED: ALPR-475 PO (16:15)
[2017-10-31] MEDS ORDERED: SODIUM CHLORIDE FLUSH 10ML SYR IVF ONE (18:00)
[2017-10-31 18:11] LABS: MICROSCOPIC NOT IND
[2017-10-31 18:15] LABS: CULTURE INDICATED? NO
[2017-10-31] MEDS ORDERED: GADOBUTROL 10 MMOL/10 ML PFS ONE (18:44)
[2017-10-31 18:46] LABS: CLOSTRIDIUM DIFFICILE ANTIGEN NEGATIVE; CLOSTRIDIUM DIFFICILE TOXIN NEGATIVE (Negative)
[2017-10-31] MEDS ORDERED: CLINDAMYCIN PMX 600MG/50ML 50 ML IV ONE (19:28)
[2017-10-31] MEDS ORDERED: MORPHINE SULFATE 4 MG/ML, 1ML IVPush PRN (19:30)
[2017-10-31] MEDS ORDERED: MORPHINE SULFATE 4 MG/ML, 1ML ONE (20:13)
[2017-10-31] MEDS ORDERED: CLINDAMYCIN PMX 600MG/50ML 0 ML ONE (20:13)
[2017-10-31] MEDS ORDERED: PIPERACILLIN/TAZO/PMX 3.375GM 50 ML ONE (20:26)
[2017-10-31] MEDS: PIPERACILLIN/TAZO/PMX 3.375GM 50 ML IV SCH (20:30)
[2017-10-31] MEDS ORDERED: DIPHENOXYLATE/ATROPINE TABLET PO PRN (20:30)
[2017-10-31] MEDS ORDERED: ONDANSETRON 2MG/ML, 2ML IVPush PRN (20:30)
[2017-10-31] MEDS ORDERED: VANCOMYCIN PER PHARMACY MC PRN (20:30)
[2017-10-31] MEDS ORDERED: BISACODYL 10 MG SUPP PR PRN (20:30)
[2017-10-31] MEDS ORDERED: ACETAMINOPHEN 325 MG TABLET PO PRN (20:30)
[2017-10-31] MEDS ORDERED: POLYETHYLENE GLYCOL 17 GM PACKET PO PRN (20:30)
[2017-10-31] MEDS ORDERED: PHARMACOKINETIC MONITORING MC PRN (22:00)
[2017-10-31] MEDS: HEPARIN 5,000 UNITS/ML, 1ML SQ SCH (22:47)
[2017-10-31] MEDS: LACTOBACILLUS CHEW TABLET PO SCH (22:47)
[2017-10-31] MEDS: SODIUM CHLORIDE FLUSH 10ML SYR IVF SCH (22:47)
[2017-10-31] MEDS: VANCOMYCIN 1,900 MG in SODIUM CHLORIDE 0.9% 250 ML IV SCH (22:47)
[2017-10-31 23:00] VITALS: BP 105/64
[2017-11-01] MEDS: PIPERACILLIN/TAZO/PMX 3.375GM 50 ML IV SCH ×4 (02:20→20:49)
[2017-11-01] MEDS: HYDROmorphone 2 MG/ML, 1ML IVPush PRN ×4 (02:20→19:37)
[2017-11-01 03:02] VITALS: BP 118/74
[2017-11-01 05:46] LABS: ALBUMIN 3.8 g/dL (3.4-5.0); ANION GAP 9 mmol/L (5-15); CALCIUM 9.1 mg/dL (8.5-10.1); CHLORIDE 108 mmol/L (98-107)
[2017-11-01 05:53] LABS: ALANINE AMINOTRANSFERASE 51 U/L (12-78); ALKALINE PHOSPHATASE 98 U/L (45-117); BILIRUBIN,TOTAL 0.8 mg/dL (0.2-1.0); CREATININE 1.21 mg/dL (0.7-1.3); TOTAL PROTEIN 6.7 g/dL (6.4-8.2)
[2017-11-01 05:58] LABS: BASOPHILS # (AUTO) 0.04 x10^3/uL (0-0.1); BASOPHILS % (AUTO) 1 % (0-1); EOSINOPHILS # (AUTO) 0.32 x10^3/uL (0-0.4); EOSINOPHILS % (AUTO) 4 % (1-7); LYMPHOCYTES % (AUTO) 39 % (22-44); MD NO; MEAN CORPUSCULAR HGB CONC 33.6 g/dL (33.2-36.2); MEAN CORPUSCULAR VOLUME 86.2 fL (81-97); MEAN PLATELET VOLUME 8.3 fL (7.4-10.4); MONOCYTES # (AUTO) 0.63 x10^3/uL (0.2-0.8); MONOCYTES % (AUTO) 9 % (2-9); NEUTROPHILS # (AUTO) 3.43 x10^3/uL (1.8-6.8); NEUTROPHILS % (AUTO) 48 % (42-75); PLATELET COUNT 266 x10^3/uL (130-400); RED BLOOD COUNT 5.05 x10^6/uL (4.38-5.82); RED CELL DISTRIBUTION WIDTH 12.5 % (9.4-14.8)
[2017-11-01] MEDS: LACTOBACILLUS CHEW TABLET PO SCH ×4 (05:58→20:49)
[2017-11-01 08:59] VITALS: BP 114/77
[2017-11-01] MEDS: HEPARIN 5,000 UNITS/ML, 1ML SQ SCH ×3 (09:00→16:46)
[2017-11-01] MEDS: OXYcodone/APAP 5/325MG TABLET PO PRN ×2 (09:01→16:46)
[2017-11-01] MEDS: SODIUM CHLORIDE FLUSH 10ML SYR IVF SCH ×2 (09:01→20:55)
[2017-11-01] MEDS: SENNA/DOCUSATE TABLET PO SCH (09:01)
[2017-11-01] MEDS: VANCOMYCIN 1,900 MG in SODIUM CHLORIDE 0.9% 250 ML IV SCH ×2 (10:37→21:49)
[2017-11-01 15:05] VITALS: BP 108/67
[2017-11-01 19:21] VITALS: BP 108/73
[2017-11-02] MEDS: HEPARIN 5,000 UNITS/ML, 1ML SQ SCH ×3 (01:00→14:59)
[2017-11-02] MEDS: PIPERACILLIN/TAZO/PMX 3.375GM 50 ML IV SCH ×3 (02:35→17:12)
[2017-11-02] MEDS: HYDROmorphone 2 MG/ML, 1ML IVPush PRN ×5 (02:35→20:19)
[2017-11-02 02:45] VITALS: BP 118/75
[2017-11-02] MEDS: LACTOBACILLUS CHEW TABLET PO SCH ×3 (05:36→17:11)
[2017-11-02 08:08] VITALS: BP 115/80
[2017-11-02 08:24] LABS: ANION GAP 7 mmol/L (5-15); CALCIUM 8.8 mg/dL (8.5-10.1); CHLORIDE 108 mmol/L (98-107)
[2017-11-02 08:35] LABS: BASOPHILS # (AUTO) 0.03 x10^3/uL (0-0.1); BASOPHILS % (AUTO) 0 % (0-1); EOSINOPHILS # (AUTO) 0.25 x10^3/uL (0-0.4); EOSINOPHILS % (AUTO) 2 % (1-7); LYMPHOCYTES # (AUTO) 1.88 x10^3/uL (1-3.4); LYMPHOCYTES % (AUTO) 17 % (22-44); MD SCAN; MEAN CORPUSCULAR HEMOGLOBIN 29.1 pg (27.5-34.5); MEAN CORPUSCULAR VOLUME 85.4 fL (81-97); MONOCYTES # (AUTO) 1.08 x10^3/uL (0.2-0.8); MONOCYTES % (AUTO) 10 % (2-9); NEUTROPHILS # (AUTO) 7.88 x10^3/uL (1.8-6.8); NEUTROPHILS % (AUTO) 71 % (42-75); PLATELET COUNT 261 x10^3/uL (130-400); RED BLOOD COUNT 5.29 x10^6/uL (4.38-5.82); RED CELL DISTRIBUTION WIDTH 12.5 % (9.4-14.8)
[2017-11-02] MEDS: SENNA/DOCUSATE TABLET PO SCH (08:47)
[2017-11-02] MEDS: SODIUM CHLORIDE FLUSH 10ML SYR IVF SCH (08:47)
[2017-11-02] MEDS ORDERED: LIDOCAINE-MPF 1%, 2ML ONE (11:32)
[2017-11-02] MEDS: ONDANSETRON ODT 4 MG PO PRN (14:08)
[2017-11-02] MEDS: SODIUM CHLORIDE 0.9% 1,000 ML IV SCH (14:08)
[2017-11-02] MEDS: VANCOMYCIN 1,900 MG in SODIUM CHLORIDE 0.9% 250 ML IV SCH (14:09)
[2017-11-02 15:03] VITALS: BP 112/79
[2017-11-02 20:02] VITALS: BP 123/82
[2017-11-03] MEDS: LACTOBACILLUS CHEW TABLET PO SCH ×5 (01:08→22:45)
[2017-11-03] MEDS: SODIUM CHLORIDE FLUSH 10ML SYR IVF SCH ×3 (01:08→22:45)
[2017-11-03] MEDS: SODIUM CHLORIDE 0.9% 1,000 ML IV SCH ×3 (01:08→16:00)
[2017-11-03] MEDS: PIPERACILLIN/TAZO/PMX 3.375GM 50 ML IV SCH ×2 (01:09→06:33)
[2017-11-03] MEDS: HEPARIN 5,000 UNITS/ML, 1ML SQ SCH ×4 (01:09→22:45)
[2017-11-03] MEDS: HYDROmorphone 2 MG/ML, 1ML IVPush PRN ×6 (01:09→23:30)
[2017-11-03 01:17] VITALS: BP 101/64
[2017-11-03 07:45] VITALS: BP 109/73
[2017-11-03 08:00] LABS: BASOPHILS # (AUTO) 0.03 x10^3/uL (0-0.1); BASOPHILS % (AUTO) 0 % (0-1); EOSINOPHILS # (AUTO) 0.26 x10^3/uL (0-0.4); EOSINOPHILS % (AUTO) 3 % (1-7); LYMPHOCYTES # (AUTO) 1.91 x10^3/uL (1-3.4); LYMPHOCYTES % (AUTO) 24 % (22-44); MD NO; MEAN CORPUSCULAR HGB CONC 33.8 g/dL (33.2-36.2); MEAN CORPUSCULAR VOLUME 85.6 fL (81-97); MEAN PLATELET VOLUME 7.7 fL (7.4-10.4); MONOCYTES # (AUTO) 0.95 x10^3/uL (0.2-0.8); MONOCYTES % (AUTO) 12 % (2-9); NEUTROPHILS # (AUTO) 4.72 x10^3/uL (1.8-6.8); NEUTROPHILS % (AUTO) 60 % (42-75); PLATELET COUNT 223 x10^3/uL (130-400); RED BLOOD COUNT 4.75 x10^6/uL (4.38-5.82); RED CELL DISTRIBUTION WIDTH 12.4 % (9.4-14.8)
[2017-11-03] MEDS ORDERED: VANCOMYCIN 1,800 MG in SODIUM CHLORIDE 0.9% 250 ML IV SCH (08:00)
[2017-11-03 08:02] LABS: ANION GAP 6 mmol/L (5-15); CALCIUM 8.4 mg/dL (8.5-10.1); CHLORIDE 110 mmol/L (98-107); CREATININE 1.77 mg/dL (0.7-1.3)
[2017-11-03] MEDS: SENNA/DOCUSATE TABLET PO SCH (09:00)
[2017-11-03] MEDS: ONDANSETRON ODT 4 MG PO PRN (09:24)
[2017-11-03] MEDS ORDERED: PHARMACY MAY ADJ FOR RENAL FX MC PRN (10:00)
[2017-11-03] MEDS ORDERED: SODIUM CHLORIDE 0.9% 1,000ML IVBOLUS ONE (10:00)
[2017-11-03] MEDS: DOXYCYCLINE 100 MG in DEXTROSE 5% 250 ML IV SCH ×2 (11:06→22:45)
[2017-11-03] MEDS: AMPICILLIN/SULBACTAM 3 GM in SODIUM CHLORIDE 0.9% 100 ML IV SCH ×2 (11:06→17:53)
[2017-11-03 15:26] VITALS: BP 130/84
[2017-11-03 19:13] VITALS: BP 116/76
[2017-11-04] MEDS: AMPICILLIN/SULBACTAM 3 GM in SODIUM CHLORIDE 0.9% 100 ML IV SCH ×2 (02:40→10:11)
[2017-11-04] MEDS: HYDROmorphone 2 MG/ML, 1ML IVPush PRN ×2 (03:34→08:27)
[2017-11-04 03:36] VITALS: BP 118/77
[2017-11-04] MEDS: SODIUM CHLORIDE 0.9% 1,000 ML IV SCH (03:40)
[2017-11-04 04:47] LABS: ANION GAP 6 mmol/L (5-15); CALCIUM 8.3 mg/dL (8.5-10.1); CHLORIDE 111 mmol/L (98-107)
[2017-11-04 04:49] LABS: CREATININE 1.45 mg/dL (0.7-1.3)
[2017-11-04] MEDS: LACTOBACILLUS CHEW TABLET PO SCH ×2 (06:47→12:19)
[2017-11-04 07:18] VITALS: BP 112/75
[2017-11-04] MEDS: HEPARIN 5,000 UNITS/ML, 1ML SQ SCH (09:00)
[2017-11-04] MEDS ORDERED: DOXY100T PO (10:02)
[2017-11-04] MEDS ORDERED: AMOX1TAB64 PO (10:02)
[2017-11-04] MEDS: SENNA/DOCUSATE TABLET PO SCH (10:11)
[2017-11-04] MEDS: DOXYCYCLINE 100 MG in DEXTROSE 5% 250 ML IV SCH (11:03)
[2017-11-04] MEDS: OXYcodone/APAP 5/325MG TABLET PO PRN (12:18)
[2017-11-04] MEDS: SODIUM CHLORIDE FLUSH 10ML SYR IVF SCH (12:19)
[2017-11-04 13:57] VITALS: BP 120/78
== END 2017-11-04 15:40 | disposition home or self-care (01) | DRG 602 ==
LOC: ED 19:33 → EDIP 19:38 → 3NW 21:37
PROVIDERS: ADMIT Internal Medicine; ATTEND Internal Medicine
DX: L02.415 Cutaneous abscess of right lower limb (principal); N17.0 Acute kidney failure with tubular necrosis; I96 Gangrene, not elsewhere classified; K50.90 Crohn's disease, unspecified, without complications; L08.9 Local infection of the skin and subcutaneous tissue, unspecified; Z89.511 Acquired absence of right leg below knee
CPT/HCPCS: 36415; 76942; 80048; 80053; 80202; 81003; 83605; 83690; 85025; 85651; 86140; 87040; 87324; 89055; 96374; A9585; J0295; J1170; J1644; J2543; J3370; J3490; J7060; Q0162; J7030; J7050